=== PATIENT | female | born 1985 | race African-American/Black ===

== ENCOUNTER 2016-07-26 14:20 | Outpatient (CLI) | payer OTHER ==
[~2016-07-26] VITALS: Ht 160 cm; Wt 81.0 kg
[2016-07-26 14:34] VITALS: BP 132/71
[2016-07-26] MEDS ORDERED: PRENTAB9 PO (14:38)
[2016-07-26] MEDS ORDERED: ZYRT10CA PO (14:38)
[2016-07-26 15:30] VITALS: BP 109/69
[2016-07-26 16:33] LABS: MEAN CORPUSCULAR HEMOGLOBIN 33.2 pg (27.0-33.0); MEAN CORPUSCULAR HGB CONC 35.2 g/dl (32.0-36.5); MEAN CORPUSCULAR VOLUME 94.5 fl (80.0-96.0); RED CELL DISTRIBUTION WIDTH 12.5 % (11.5-14.5); WHITE BLOOD COUNT 7.8 K/mm3 (4.0-10.0)
[2016-07-26 16:40] LABS: INR 0.98
[2016-07-26 16:49] VITALS: BP 103/55
[2016-07-26 16:59] LABS: ALBUMIN/GLOBULIN RATIO 0.75 (1.00-1.93); ALKALINE PHOSPHATASE 210 U/L (45-117); ALT/SGPT 16 U/L (12-78); ANION GAP 11 MEQ/L (8-16); AST/SGOT 15 U/L (15-37); BILIRUBIN,TOTAL 0.3 MG/DL (0.2-1.0); BLOOD UREA NITROGEN 6 MG/DL (7-18); CARBON DIOXIDE LEVEL 25 MEQ/L (21-32); CHLORIDE LEVEL 107 MEQ/L (98-107); CREATININE FOR GFR 0.65 MG/DL (0.55-1.02); GLOMERULAR FILTRATION RATE > 60.0 (>60); GLUCOSE, FASTING 63 MG/DL (70-105); SODIUM LEVEL 143 MEQ/L (136-145); URIC ACID 4.7 MG/DL (2.6-6.0)
[2016-07-26 17:39] VITALS: BP 103/55
[2016-07-26 18:46] VITALS: BP 109/71
== END 2016-07-26 19:30 | disposition home or self-care (01) ==
LOC: M LDO 14:20
PROVIDERS: ATTEND Obstetrics & Gynecology
DX: O26.893 Other specified pregnancy related conditions, third trimester (principal); R10.9 Unspecified abdominal pain; O34.13 Maternal care for benign tumor of corpus uteri, third trimester; Z3A.37 37 weeks gestation of pregnancy

== ENCOUNTER 2016-08-03 03:04 | Inpatient (IN) | payer OTHER ==
[~2016-08-03] VITALS: Ht 162.6 cm; Wt 79.0 kg
[2016-08-03] VITALS (38 sets, daily range): BP systolic 106–167; BP diastolic 61–97
[~2016-08-03 03:04] MED LIST: PRENTAB9 PO; ZYRT10CA PO
[2016-08-03] MEDS ORDERED: LACTATED RINGER'S 1000 ML IV STA (06:20)
[2016-08-03] MEDS ORDERED: LR 1,000 ML IV SCH ×2 (06:20→17:49)
--- NOTE | 2016-08-03 06:35 | HPEPDOC ---
Obstetrical History & Physical General Date of Admission Aug 03, 2016 at 06:17 History of Present Illness Keshia is a 31yo with SIUP at 39w0d presenting with painful regular contractions. SCE on presentation 3-4/80/-2, on re-check 2hr later was 5-6/80/- 2. No LOF, no vaginal bleeding, feels good movement. Chief Complaint: Contractions, term Information Provided By: Patient Care Care: Good Care Dating Final EDC: Aug 10, 2016 Final EDC by: LMP Antepartum Course Diagnos(e)s Fibroid uterus (right lateral 1.3x0.73x0.89cm, anterior 3.3cm, left anterior 2.3cm) Height (inches): 64 Pre- weight (lbs.): 151 Admission Weight (lbs.): 177 Change in Weight (lbs.): 26 Past Medical History Past Obstetrical History : Past Obstetrical History: [employer] History: No pertinent history Past Medical History Medical History seasonal allergies, fibroid uterus Surgical History: [place] teeth Family History Significant Family History: Hypertension Social History Marital Status: Family situation: Spouse/partner home Psychosocial History: No pertinent psych hx * Smoker: non-smoker Alcohol: denies Drugs: denies Imunizations Influenza Status: current Allergies Coded Allergies: No Known Drug Allergy (Verified Allergy, Unknown, 07/26/16) Medications Scheduled Cetirizine HCl (Zyrtec Allergy) 10 Mg Cap 10 MG PO DAILY Multivitamins/ ( 27-0.8 mg) 1 Tab Tab 1 TAB PO DAILY Physical Examination Physical Examination GENERAL: Alert and oriented times three. BREAST: . ABDOMEN: Gravid and non-tender to touch. FETUS: Is vertex (VTX) by sterile vaginal examination (SVE) HEART RATE: Regular rate and rhythm. LUNGS: Clear to auscultation (CTA). EXTREMITIES: trace edema of BLE Pertinent Laboratoy Data Blood Type: O+ RBC Antibody Screen: Negative HIV: Negative Hepatitis B: Negative Hepatitis C: Unknown Rapid Plasma Reagin: Nonreactive Rubella: Immune Varicella: Immune Chlamydia/Gonorrhea: Negative Group B Streptococcus: Negative Glucose Tolerance Test: 124 Anatomy Ultrasound Ultrasound Date: Apr 13, 2016 Placenta Location: Anterior Normal Anatomy: Yes Placenta Previa: No Other Ultrasounds Other Ultrasounds Serial growth scans, most recent at 36wk on 13 Jul 2016: 77%ile Steroid Therapy Steroid Therapy: No Vaginal Examination Dilation: 5 cm Effacement: 80+% Station: -2 Cervical Consistency: Soft Cervical Position: Anterior Presentation: Cephalic presentation Assessment Heart Rate (FHR): 140 Variability: Moderate Accelerations: Positive Decelerations: None Tocometer Contractions: Yes Frequency: regular, every 3-7 min. Duration: greater than 60 seconds Strength: palpated as moderate Assessment/Plan Assessment Keshia is a 31yo with SIUP at 39w0d admitted to L&D for active labor. SCE on presentation 3-4/80/-2, on re-check 2hr later was 5-6/80/-2. Reassuring status. Ctx q5 min. Vertex by SCE. Membranes intact. GBS negative. PNC: followed with serial GS for fibroid uterus (right lateral 1.3x0.73x0.89cm, anterior 3.3cm, left anterior 2.3cm)- most recent GS at 36wk: 77%ile PMhx: seasonal allergies on zyrtec Plan Admit and orient. 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 Diet: clear liquids Group B Streptococcus (GBS) negative Labs and intravenous (IV) per unit protocol. Lactated Ringers (LR): Bolus 1000 mL, then at 125 mL/hr. Anticipate normal spontaneous delivery () C-S as appropriate Does not currently desire epidural, but order placed for anesthesia consult should she change her mind Note in chart for active management of 3rd stage of labor related to fibroid uterus MARTINEZ ROSARIO MD Aug 03, 2016 06:35
[2016-08-03 07:03] LABS: MEAN CORPUSCULAR HEMOGLOBIN 33.3 pg (27.0-33.0); MEAN CORPUSCULAR HGB CONC 35.9 g/dl (32.0-36.5); MEAN CORPUSCULAR VOLUME 92.8 fl (80.0-96.0); RED CELL DISTRIBUTION WIDTH 12.6 % (11.5-14.5); WHITE BLOOD COUNT 7.4 K/mm3 (4.0-10.0)
[2016-08-03] MEDS ORDERED: FENTANYL 2MCG/ML ROPIVACAINE 0.2% NACL 250 ML CADD As Ordered ONE (14:41)
[2016-08-03] MEDS ORDERED: ONDANSETRON 4MG/2ML VIAL (J2405) IV PRN ×2 (15:45→22:45)
[2016-08-03] MEDS ORDERED: REFRIGERATOR IV KEYS XX PRN (15:45)
[2016-08-03] MEDS ORDERED: ePHEDrine SULFATE 25 MG/5 ML(5MG/ML) SYRINGE IV PRN (15:45)
[2016-08-03] MEDS ORDERED: FENTANYL/ROPIVACAINE/NACL CADD 250 ML EPIDURAL SCH (15:45)
[2016-08-03] MEDS ORDERED: EPIDURAL COMMENT XX SCH (15:45)
[2016-08-03] MEDS ORDERED: EPIDURAL/PCA KEYS XX PRN (15:45)
[2016-08-03] MEDS ORDERED: NALOXONE INJ 0.4 MG/1 ML VIAL (J2310) IV PRN (15:45)
[2016-08-03] MEDS ORDERED: diphenhydrAMINE INJ 50MG/ML VIAL (J1200) IV PRN (15:45)
[2016-08-03] MEDS ORDERED: OXYTOCIN DRIP 30 UNITS in APPROPRIATE DILUENT 1 EA IV SCH ×2 (18:00→22:45)
[2016-08-03 22:34] LABS: CORD GAS ABE A -7.8; CORD GAS HCO3 A 18.6 MEQ/L; CORD GAS O2 SAT A 60.9 %; CORD GAS PCO2 A 41.1 mmHg; CORD GAS PH A 7.274 UNITS; CORD GAS SBC A 17.5 MEQ/L; CORD GAS TCO2 A 19.9 MEQ/L
[2016-08-03 22:37] LABS: CORD GAS ABE V -5.2; CORD GAS HCO3 V 22.6 MEQ/L; CORD GAS O2 SAT V 49.4 %; CORD GAS PCO2 V 52.7 mmHg; CORD GAS PH V 7.251 UNITS; CORD GAS PO2 V 22.9 mmHg; CORD GAS SBC V 19.1 MEQ/L; CORD GAS TCO2 V 24.3 MEQ/L
[2016-08-03] MEDS ORDERED: ACETAMINOPHEN 500 MG TAB PO PRN (22:45)
[2016-08-03] MEDS ORDERED: DOCUSATE SODIUM 100 MG CAP PO PRN (22:45)
[2016-08-03] MEDS ORDERED: METHYLERGONOVINE MALEATE 0.2 MG TAB PO PRN (22:45)
[2016-08-03] MEDS ORDERED: RHOGAM 300 MCG (1500 IU) INJ (J2790) IM SCH (22:45)
[2016-08-03] MEDS ORDERED: PROMETHAZINE 25 MG TAB PO PRN (22:45)
[2016-08-03] MEDS ORDERED: AMPICILLIN SOD/SULBACTAM SOD 3 GM in D5W MINI-BAG PLUS 100 ML IV ONE (22:45)
[2016-08-03] MEDS ORDERED: DIBUCAINE 1% OINTMENT 30GM TOP PRN (22:45)
[2016-08-03] MEDS ORDERED: MEASLES,MUMPS,RUBELLA VACCINE INJ (MMR-II) (90707) SC SCH (22:45)
[2016-08-04] MEDS: IBUPROFEN 800 MG TAB PO PRN ×3 (01:28→21:51)
[2016-08-04 01:40] VITALS: BP 110/63
[2016-08-04 06:09] VITALS: BP 107/57
[2016-08-04] MEDS: PRENATAL VITAMIN TAB PO SCH (09:56)
[2016-08-04 18:43] VITALS: BP 120/67
[2016-08-05 06:20] VITALS: BP 114/57
[2016-08-05] MEDS: PRENATAL VITAMIN TAB PO SCH (08:42)
[2016-08-05] MEDS ORDERED: ADACEL/BOOSTRIX VACCINE (DIPHTH/PERTUSS/ACELL/TETANUS)0.5ML SYR (90715) IM ONE (09:00)
[2016-08-05 11:15] VITALS: BP 113/70
[2016-08-05 17:41] VITALS: BP 129/67
[2016-08-05] MEDS: IBUPROFEN 800 MG TAB PO PRN (21:58)
[2016-08-06 05:49] VITALS: BP 111/75
--- NOTE | 2016-08-06 06:47 | DSES ---
DATE OF ADMISSION: 08/03/2016 DATE OF DISCHARGE: 08/06/2016 This lady is a 31-year-old, 1, now para 1, was admitted with spontaneous contractions at 39 weeks of gestation. She had a spontaneous vaginal delivery of a live male . score of 1 and 9 at one and five, respectively. Arterial pH 7.24, base excess -7.8, venous pH 7.25, base excess -5.2. She had a small sidewall tear, which was oversewn in the usual fashion with #3-0 Vicryl. Her risk factors, she had a fibroid uterus. She had a maternal temperature of 101 and she was given Unisom because of questionable chorioamnionitis. On her third day, we discussed phlebitis, cystitis, mastitis, endometritis and cellulitis, diet, exercise, pain management, perineal, breast and wound care. On reviewing her vital signs, she has been afebrile throughout. Blood pressure is 111/75, respirations 18, pulse 90, temperature 97.5. Her admitting hemoglobin was 13.9, hematocrit 38.6 and platelets are 205. She had placenta sent for evaluation of chorioamnionitis and it suggested that there was an acute episode of chorioamnionitis. The rest of the examination was unremarkable. She is normocephalic, atraumatic. Neck full range of motion. Pupils equal and reactive to light. Chest is clear bilaterally at the bases. Heart sounds are normal. Distal pulses are normal. No evidence of deep venous thrombosis (DVT), pulmonary embolism (PE) or superficial phlebitis. Uterus 2 below. Lochia is moderate. Four quadrant bowel sounds are noted. No rashes, lesions or pruritus. Musculoskeletal: There are no arthralgia or myalgia. No cough, wheezes, shortness of breath or dyspnea on exertion. No chest pain. No bleeding. Neuro complete. No incontinency or frequency. No nausea, vomiting, diarrhea or constipation. Perineum is healing well. She has no gyne issues. No past medical history of significance. No tobacco or alcohol. No drug abuse. . No domestic violence. In summary, we have a term gestation admitted in active labor, delivered a live male infant. Baby is presently in intensive care unit (NICU) because of maternal temperature. 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 Medication will be given on discharge.
[2016-08-06] MEDS ORDERED: COLA100C PO (10:51)
[2016-08-06] MEDS ORDERED: TYLE500T78 PO (10:51)
[2016-08-06] MEDS ORDERED: DIBU1OI TOP (10:51)
[2016-08-06] MEDS ORDERED: MOTR200T44 PO (10:51)
== END 2016-08-06 11:30 | disposition home or self-care (01) | DRG 775 ==
LOC: M LDO 03:04 → M LDI 06:17 → M OBS 08-04 00:43
PROVIDERS: ADMIT Obstetrics & Gynecology; ATTEND Obstetrics & Gynecology
PROC: 10E0XZZ Delivery of Products of Conception, External Approach (ICD-10-PCS; principal; 2016-08-03)
PROC: 0HQ9XZZ Repair Perineum Skin, External Approach (ICD-10-PCS; 2016-08-03)
DX: O76 Abnormality in fetal heart rate and rhythm complicating labor and delivery (principal); O41.1230 Chorioamnionitis, third trimester, not applicable or unspecified; Z37.0 Single live birth; O70.0 First degree perineal laceration during delivery; Z3A.39 39 weeks gestation of pregnancy

== ENCOUNTER 2017-05-02 16:42 | Emergency (ER) | payer OTHER ==
[~2017-05-02] VITALS: Ht 160 cm; Wt 68.6 kg
[2017-05-02 16:42] VITALS: BP 124/82
[~2017-05-02 16:42] MED LIST changes: +COLA100C5 PO; +DIBU10OI TOP; +MOTR200T44 PO; +TYLE500T78 PO
[2017-05-02] MEDS ORDERED: NORA0.35 (16:51)
[2017-05-02] MEDS ORDERED: CETI10TA (16:51)
== END 2017-05-02 18:34 | disposition home or self-care (01) ==
LOC: M ED 16:42
DX: R42 Dizziness and giddiness (principal)

== ENCOUNTER → 2017-11-04 | Outpatient (CLI) | payer OTHER | LOC: M RAD 09:24 | DX: M79.604 Pain in right leg (principal); M79.605 Pain in left leg ==

== ENCOUNTER 2017-11-08 06:59 | Day surgery (SDC) | payer OTHER ==
[2017-11-08 07:40] LABS: HEMATOCRIT 35.7 % (36.0-47.0); HEMOGLOBIN 12.6 g/dl (12.0-15.5)
[2017-11-08] MEDS: LR 1,000 ML IV ×2 (07:41→13:07)
[2017-11-08 07:57] LABS: CONTROL LINE HCG INT CTR LINE PRESENT; HCG, SERUM QUALITATIVE NEGATIVE (NEGATIVE)
[2017-11-08] MEDS ORDERED: fentaNYL 250 MCG/5 ML INJECTION (J3010) As Ordered (08:20)
[2017-11-08] MEDS ORDERED: ROCURONIUM BROMIDE 50 MG/5 ML VIAL As Ordered (08:20)
[2017-11-08] MEDS ORDERED: PROPOFOL 200 MG/20 ML VIAL As Ordered (08:20)
[2017-11-08] MEDS ORDERED: MIDAZOLAM INJ 2 MG/2 ML VIAL (J2250) As Ordered (08:20)
[2017-11-08] MEDS ORDERED: LIDOCAINE 2% INJ 100 MG/5 ML SDV (FOR ANES.) As Ordered (08:20)
[2017-11-08] MEDS: VASOPRESSIN INJ 20 UNITS/ML VIAL As Ordered (10:39)
[2017-11-08] MEDS: BUPIVACAINE HCL 0.25% 30 ML VIAL As Ordered (10:40)
[2017-11-08] MEDS: PERCOCET 5MG/325MG TAB PO (13:40)
[2017-11-08] MEDS: ONDANSETRON 4MG/2ML VIAL (J2405) IV (13:40)
[2017-11-08] MEDS: fentaNYL 100 MCG/2 ML INJECTION (J3010) IV ×4 (13:40→13:55)
[2017-11-08] MEDS ORDERED: GLYCOPYRROLATE INJ 0.2 MG/ML 2 ML VIAL As Ordered (13:54)
[2017-11-08] MEDS ORDERED: ONDANSETRON 4MG/2ML VIAL (J2405) As Ordered (13:54)
[2017-11-08] MEDS ORDERED: METOCLOPRAMIDE INJ 10MG/2ML VIAL (J2765) As Ordered (13:54)
[2017-11-08] MEDS ORDERED: NEOSTIGMINE 10 MG/10 ML VIAL (J2710) As Ordered (13:54)
[2017-11-08] MEDS ORDERED: fentaNYL 100 MCG/2 ML INJECTION (J3010) As Ordered (13:55)
[2017-11-08] MEDS ORDERED: dexameTHASONE 4 MG/ML 1ML VIAL (J1100) As Ordered (13:55)
[2017-11-08] MEDS ORDERED: ePHEDrine SULFATE 25 MG/5 ML(5MG/ML) SYRINGE As Ordered (13:57)
== END 2017-11-08 15:43 | disposition home or self-care (01) ==
LOC: M SDC 06:59
DX: D25.9 Leiomyoma of uterus, unspecified (principal); D55.0 Anemia due to glucose-6-phosphate dehydrogenase [G6PD] deficiency; Z79.899 Other long term (current) drug therapy
CPT/HCPCS: 58545